=== PATIENT | male | born 1985 | race American Indian/Alaskan Native ===

== ENCOUNTER 2017-11-20 18:41 | Emergency (ER) | payer OTHER ==
[2017-11-20] MEDS ORDERED: Acetaminophen Soln 650 MG/20.3 ML UD Cup PO ONE (18:48)
[2017-11-20] MEDS ORDERED: Acetaminophen 325 MG Tab PO ONE (18:50)
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
== END 2017-11-20 19:35 | disposition home or self-care (01) ==
LOC: JD.ED 18:41
DX: S00.03XA Contusion of scalp, initial encounter (principal); V57.5XXA Driver of pick-up truck or van injured in collision with fixed or stationary object in traffic accident, initial encounter
CPT/HCPCS: 99284; A9270; 99283